=== PATIENT | male | born 1970 | race Two or more races ===

== ENCOUNTER 2018-09-12 21:42 | Emergency (ER) | payer BC, OTHER ==
[~2018-09-12] VITALS: Ht 236.2 cm; Wt 82.0 kg
[~2018-09-12 21:42] MED LIST: lisinopril
[2018-09-12] MEDS ORDERED: ASPIRIN 81MG TABLET PO ONE (22:45)
[2018-09-13 00:03] LABS: BASOPHILS % 0.4 % (0.0-2.0); EOSINOPHILS % 0.9 % (0.0-5.0); HEMATOCRIT. 44.3 % (42.0-52.0); HEMOGLOBIN. 15.2 g/dL (14.0-18.0); LYMPHOCYTES % 20.8 % (20.0-50.0); MEAN CORPUSCULAR HEMOGLOBIN 32.7 pg (28.0-32.0); MEAN CORPUSCULAR VOLUME 95.4 fL (80.0-94.0); MEAN PLATELET VOLUME 8.6 fl (7.4-10.4); MONOCYTES % 7.4 % (2.0-8.0); NEUTROPHILS % 70.5 % (40.0-76.0); PLATELET 223 x1000/uL (130-400); RED BLOOD CELL COUNT 4.64 mill/uL (4.7-6.1)
[2018-09-13 00:04] LABS: CHLORIDE 102 mEq/L (98-107)
[2018-09-13 04:00] VITALS: BP 119/76
== END 2018-09-13 04:00 | disposition home or self-care (01) ==
LOC: ER 21:42
DX: I10 Essential (primary) hypertension (principal); R07.9 Chest pain, unspecified
CPT/HCPCS: 36415; 71045; 83880; 84484; 93005; 99284

== ENCOUNTER 2020-05-09 22:10 | Emergency (ER) | payer OTHER ==
[~2020-05-09] VITALS: Ht 160 cm; Wt 88.3 kg
[2020-05-10 00:42] VITALS: BP 142/103
== END 2020-05-10 01:14 | disposition home or self-care (01) ==
LOC: ER 22:37
DX: I16.0 Hypertensive urgency (principal); I10 Essential (primary) hypertension; E11.9 Type 2 diabetes mellitus without complications; E78.00 Pure hypercholesterolemia, unspecified
CPT/HCPCS: 93005; 99283